=== PATIENT | female | born 1950 | race Hispanic/Latino ===

== ENCOUNTER 2016-04-06 05:43 | Inpatient (IN) | payer MEDICARE, OTHER ==
[2016-04-01 11:36] LABS: Bilirubin,Urine NEG (Negative); Blood,Urine NEG (Negative); Ketones,Urine TR mg/dL (Negative); Leukocyte Esterase,Urine NEG (Negative); Nitrite,Urine NEG (Negative); Protein,Urine <15 mg/dL mg/dL (Negative); Urobilinogen,Urine < 2.0 mg/dL (<2.0)
[2016-04-01 11:46] LABS: Basophils % (Auto) 0.7 % (0.0-1.8); Eosinophils % (Auto) 1.5 % (0.0-4.3); Hematocrit 43.6 % (30.3-42.9); Hemoglobin 14.5 gm/dl (10.1-14.3); Mean Corpuscular HGB Conc 33 % (30-34); Mean Corpuscular Hemoglobin 28 pg (28-32); Mean Corpuscular Volume 85 fl (79-97); Platelet Count 238 K/mm3 (140-440); Red Blood Count 5.12 M/mm3 (3.65-5.03); Red Cell Distribution Width 14.6 % (13.2-15.2); White Blood Count 10.9 K/mm3 (4.5-11.0)
[2016-04-01 11:56] LABS: Alanine Aminotransferase 21 units/L (7-56); Albumin 4.1 g/dL (3.9-5); Albumin/Globulin Ratio 1.2 %; Alkaline Phosphatase 90 units/L (35-129); BUN/Creatinine Ratio 25.71; Bilirubin,Total 0.4 mg/dL (0.1-1.2); Blood Urea Nitrogen 18 mg/dL (7-17); Calcium 9.4 mg/dL (8.4-10.2); Carbon Dioxide 24 mmol/L (22-30); Chloride 95.1 mmol/L (98-107); Glucose 193 mg/dL (65-100); Potassium 4.4 mmol/L (3.6-5.0); Sodium 135 mmol/L (137-145); Total Protein 7.5 g/dL (6.3-8.2)
[2016-04-01 11:57] LABS: Anion Gap 20 mmol/L
[2016-04-01 12:47] LABS: Cholesterol 179 mg/dL (50-199); HDL Cholesterol 50 mg/dL (40-59); LDL Cholesterol,Direct 98 mg/dL (50-130); Triglycerides 159 mg/dL (2-149)
--- NOTE | 2016-04-01 15:27 | Anesthesia Consultation ---
Anesthesia Consult and Med Hx - Airway Anesthetic Teeth Evaluation: Good, Caps (#8) ROM Head & Neck: Adequate Mental/Hyoid Distance: Adequate Mallampati Class: Class III Intubation Access Assessment: Possibly Difficult - Pulmonary Exam CTA: Yes - Cardiac Exam Cardiac Exam: RRR (Hx Afib) - Pre-Operative Health Status ASA Pre-Surgery Classification: ASA3 Proposed Anesthetic Plan: General (no previous anesthesia problems) - Pulmonary Hx Smoking: Yes (CIGARETTES 1 1/2 PPD X 33 YRS, QUIT IN 2002) Hx Respiratory Symptoms: (recent bronchitis - 2 more doses of medicine, anesthesiologist informed) Hx Sleep Apnea: Yes (uses CPAP) - Cardiovascular System Hx Hypertension: Yes (FOR 15 YRS) Hx Coronary Artery Disease: Yes (s/p CABG - clearance on chart) Hx Cardia Arrhythmia: Yes (Afib) - Central Nervous System Hx Seizures: Yes ( A CHILD, UNKNOWN ETIOLOGY) Hx Psychiatric Problems: Yes (depression) - Gastrointestinal Hx Gastroesophageal Reflux Disease: Yes - Endocrine Hx Non-Insulin Dependent Diabetes: Yes - Other Systems Hx Cancer: No Hx Obesity: Yes (Morbid obesity)
--- NOTE | 2016-04-01 15:35 | Anesthesia Consultation ---
Anesthesia Consult and Med Hx Date of service: 04/01/16 - Airway Anesthetic Teeth Evaluation: Good, Caps (38) ROM Head & Neck: Adequate Mental/Hyoid Distance: Adequate Mallampati Class: Class III Intubation Access Assessment: Possibly Difficult - Pulmonary Exam CTA: Yes - Cardiac Exam Cardiac Exam: RRR - Pre-Operative Health Status ASA Pre-Surgery Classification: ASA3 Proposed Anesthetic Plan: General (No previous anesthesia problems) - Pulmonary Hx Smoking: Yes (CIGARETTES 1 1/2 PPD X 33 YRS, QUIT IN 2002) Hx Sleep Apnea: Yes - Cardiovascular System Hx Hypertension: Yes (FOR 15 YRS) Hx Coronary Artery Disease: Yes - Central Nervous System Hx Seizures: Yes ( A CHILD, UNKNOWN ETIOLOGY) - Other Systems Hx Cancer: No
[~2016-04-06 05:43] MED LIST: MARCAINE-EPI 0.5%-1:200,000 INFILTRATI ONE; NACL 0.9% 1000 ML 1,000 ML IV SCH; NACL 0.9% IR ONE; VERSED IV NR; XYLOCAINE 1% 20 mL INFILTRATI ONE
[2016-04-06] MEDS ORDERED: XYLOCAINE MPF 2% ONE (06:27)
[2016-04-06] MEDS ORDERED: ROBINUL ONE (06:28)
[2016-04-06] MEDS ORDERED: DECADRON ONE (06:28)
[2016-04-06] MEDS ORDERED: ZEMURON IV ONE ×2 (06:28→10:47)
[2016-04-06] MEDS ORDERED: ZOFRAN ONE (06:28)
[2016-04-06] MEDS ORDERED: NACL P/F VIAL (10 ML) 10 ML ONE (06:28)
[2016-04-06] MEDS ORDERED: BLOXIVERZ ONE (06:28)
[2016-04-06] MEDS ORDERED: DIPRIVAN 10 MG/ML IV ONE (06:29)
[2016-04-06] MEDS ORDERED: DILAUDID ONE (06:29)
[2016-04-06] MEDS ORDERED: ePHEDrine SULFATE ONE (06:30)
[2016-04-06] MEDS ORDERED: NACL BACTERIOSTATIC INFILTRATI ONE (06:32)
--- NOTE | 2016-04-06 06:40 | Anesthesia Day of Surgery ---
Anesthesia Day of Surgery - Day of Surgery Patient Examined: Yes Patient H&P Reviewed: Yes Patient is NPO: Yes Beta Blockers: Yes Cardiac Clearance: Yes
[2016-04-06] MEDS ORDERED: PEPCID IV NR (07:00)
[2016-04-06] MEDS ORDERED: ZOFRAN IV PRN ×2 (07:22→07:39)
[2016-04-06] MEDS ORDERED: LEVAQUIN 500MG/100ML 100 ML IV ONE ×2 (07:39)
[2016-04-06] MEDS ORDERED: QUELICIN ONE (07:54)
[2016-04-06] MEDS ORDERED: NEO SYNEPHRINE/NS Syringe(OR USE) IV ONE (07:54)
[2016-04-06] MEDS ORDERED: LOVENOX SUB-Q NR ×2 (08:00)
[2016-04-06] MEDS ORDERED: LEVAQUIN 500MG/100ML 100 ML IV NR (08:00)
[2016-04-06] MEDS ORDERED: LACTATED RINGERS 1,000 ML IV SCH (08:00)
[2016-04-06] MEDS ORDERED: FLAGYL 500 MG/100 ML 100 ML IV NR ×2 (08:00)
[2016-04-06] MEDS ORDERED: TRANSDERM-SCOP TD NR (08:00)
[2016-04-06] MEDS ORDERED: WATER FOR IRRIG STERILE IR ONE (08:05)
[2016-04-06] MEDS ORDERED: NACL 0.9% 1000 ML 1,000 ML ONE (09:27)
[2016-04-06] MEDS ORDERED: LOVENOX SUB-Q SCH (10:00)
--- NOTE | 2016-04-06 10:56 | Admit Criteria Form ---
Admission Criteria Documentation: AMBULATORY SURGERY EXCEPTION CRITERIA Ambulatory Surgery Exception Criteria ( Place 'X' for any and all applicable criteria): Surgery or procedure performed on ambulatory basis may require inpatient stay for[A] ANY ONE of the following(1)(2)(3)(4)(5)(6)(7)(8)(9): [X] I. A preoperative situation, condition, or finding that warrants inpatient stay as indicated by ANY ONE of the following: [] a) Inpatient care needed because of severity of a disease or condition rather than the surgery (eg, severe cardiac or respiratory disease, severe infection) (15) (16 ) (17) (18) [] b) Emergent procedure (eg, angioplasty for acute ischemia)(19) [] c) Complex surgical approach or situation as indicated by ANY ONE of the following(3): [] i) Open approach needed instead of usual endoscopic, transcatheter, or other less invasive procedure [] ii) Difficult approach because of previous operation [] iii) Airway monitoring required after open neck procedures(20)(21) [] iv) Large mass requiring unusually extensive dissection [] v) Additional complicating feature requiring inpatient care (eg, drain management)(22(23): [X] d) Major surgery in a pt with high anesthetic risk as indicated by ANY ONE of the following (2)(3)(5)(7)(8): [X] i) ASA risk class III or higher (severe systemic disease impairing function) [D] [] ii) Advanced age (eg, older than 85 years)(14)(24) [] iii) Symptomatic heart failure(25) [] iv) Symptomatic asthma or COPD(8)(21) [] v) Morbid obesity with hemodynamic or respiratory problems(20)( 21)(26)(27) [X] vi) Obstructive sleep apnea(20)(21) [] vii) Former premature infants who are younger than 60 weeks [] viii) High risk for severe postoperative abnormalities (eg, severe postoperative hypocalcemia after parathyroidectomy for severe hyperparathyroidism)(27)( 28) [] ix) Unstable angina(25) [] e) Drug-related risk requiring inpatient stay as indicated by ANY ONE of the following(5)(10)(14)(32)(33) [] i) Procedure requires discontinuing drugs or other therapy (eg , antiarrhythmic medication, antiseizure medication), which necessitates inpatient observation or treatment.(18)(31) [] ii) Major surgery and high risk drug use as indicated by ANY ONE of the following: [] 1) Active abuse of cocaine or similar drug [] 2) Monoamine oxidase inhibitor use [] 3) Other drug identified as posing risk [] f) Inadequate outpatient care situation as indicated by ANY ONE of the following(5)(10)(14)(32)(33) [] i) Patient lives remote from medical facility and procedure has urgent complication potential, and temporary nearby residence cannot be arranged [] ii) Patient will have postprocedure incapacitation and inadequate assistance at home, or alternative level of care cannot be arranged. [] iii) Patient will have long general anesthesia or procedure side effect resolution time, and competent person to stay with patient on first postoperative night at home or alternative level of care cannot be arranged. []iv) Other inadequate outpatient situation that cannot be handled by other means [] II. A perioperative event, condition, or finding that warrants inpatient stay as indicated by ANY ONE of the following (1)(2)(3): [] a) Inadequate physiologic recovery: cardiovascular, respiratory, or hemodynamic status not normal or near preoperative baseline(18) [] b) Hemodynamic instability [] c) Patient not alert with near normal or baseline mental status [] d) Temperature not normal or as expected and not appropriate for outpatient treatment of condition [] e) Ambulatory or appropriate activity level status not yet achieved post procedure [E](34)(35)(36) [] f) Operative site not appropriate (eg, unexpected or excessive drainage or bleeding) [] g) Postoperative effects not resolved or adequately managed (eg, significant pain or vomiting not appropriate for outpatient or next level of care)(10)(12) [] h) Complicating features requiring inpatient care as indicated by ANY ONE of the following(37): [] i) Severe complications of procedure (eg, bowel injury, airway compromise, vascular injury,severe hemorrhage) [] ii) Extensive (eg, dissection far beyond usual scope of procedure ) or prolonged (eg, 120 minutes beyond usual) surgery needed requiring inpatient postoperative care [] iii) Conversion to an open or complex procedure that requires inpatient care (eg, open vs laparoscopic cholecystectomy, abdominal vs vaginal hysterectomy)(38) [] iv) Comorbid condition or test result identified during or post procedure that requires inpatient care (7) [] v) Malignant hyperthermia(30) [] vi) Other complicating feature requiring inpatient care(22)(23) Inpatient stay may be needed until ALL of the following are present (1)(2)(3)(4) (5)(6)(10)(14)(33)(40): []a) Physiologic recovery: cardiovascular, respiratory, and hemodynamic status normal or near preoperative baseline []b) Hemodynamic stability []c) Patient alert, with near normal or baseline mental status []d) Temperature appropriate: patient afebrile or temperature appropriate for outpt treatment of condition []e) Activity level appropriate: ambulatory or appropriate activity level post procedure []f) Operative site appropriate as indicated by ALL of the following: []i) Site dry or with expected drainage []ii) Any blood noted is as expected for procedure. []g) Postoperative effects resolved or managed as indicated by ALL of the following: []i) Pain management appropriate for outpatient (or next level of) care(10) []ii) Minimal nausea and vomiting: if present, successfully treated with oral medication(12) []iii) Headache, dizziness, or drowsiness (if present) are mild. []h) Voiding status acceptable as indicated by ANY ONE of the following: []i) Voiding spontaneously []ii) No voiding but instructions given for follow-up in 6 to 8 hours []iii) Urinary catheter in place, and instructions given for follow-up []i) Complicating features requiring inpatient care manageable at a lower level of care(37) []j) Comorbid conditions manageable at a lower level of care(37) The original [facility] content created by [employer] has been revised. The portions of the content which have been revised are identified through the use of italic text or in bold, and [facility] has neither reviewed nor approved the modified material. All other unmodified content is copyright [facility]. Please see references footnoted in the original [facility] edition 2016 Admission Criteria Met: Yes
[2016-04-06] MEDS ORDERED: NACL 0.9% IR ONE (10:57)
[2016-04-06] MEDS ORDERED: XYLOCAINE 1% 20 mL INFILTRATI ONE (11:00)
[2016-04-06] MEDS ORDERED: MARCAINE-EPI 0.5%-1:200,000 INFILTRATI ONE (11:00)
--- NOTE | 2016-04-06 11:39 | Post Anesthesia Evaluation ---
- Post Anesthesia Evaluation Patient Participated: Yes Airway Patent: Yes Stable Respiratory Function: Yes Nausea/Vomiting: No Temp > 96.8F: Yes Pain Manageable: Yes Adequeate Hydration: Yes Anesthesia Complications: No Block Receding Appropriately: Not Applicable Patient on Ventilator: No
[2016-04-06] MEDS: DILAUDID IV PRN ×4 (11:53→22:57)
[2016-04-06] MEDS: TORADOL IV SCH ×3 (14:30→23:00)
[2016-04-06] MEDS: FLAGYL 500 MG/100 ML 100 ML IV SCH (16:00)
[2016-04-06 17:10] LABS: BUN/Creatinine Ratio 22.22; Blood Urea Nitrogen 20 mg/dL (7-17); Calcium 8.6 mg/dL (8.4-10.2); Carbon Dioxide 16 mmol/L (22-30); Chloride 100.8 mmol/L (98-107); Glucose 252 mg/dL (65-100); Potassium 4.8 mmol/L (3.6-5.0); Sodium 138 mmol/L (137-145)
[2016-04-06 17:22] LABS: Hematocrit 41.7 % (30.3-42.9); Hemoglobin 13.4 gm/dl (10.1-14.3); Mean Corpuscular HGB Conc 32 % (30-34); Mean Corpuscular Hemoglobin 28 pg (28-32); Mean Corpuscular Volume 87 fl (79-97); Platelet Count 259 K/mm3 (140-440); Red Blood Count 4.79 M/mm3 (3.65-5.03); Red Cell Distribution Width 15.1 % (13.2-15.2); White Blood Count 17.5 K/mm3 (4.5-11.0)
[2016-04-06 17:28] LABS: Anion Gap 26 mmol/L
[2016-04-06 18:26] LABS: Basophils % (Manual) 0 % (0.0-1.8); Blastocytes % (Manual) 0 %; Eosinophils % (Manual) 0 % (0.0-4.3)
[2016-04-06 18:28] LABS: Anisocytosis 1+; Diff Status Complete; Large Platelets 1+; Ovalocytes Rare; Platelet Estimate Consistent w Auto
[2016-04-07] MEDS: TORADOL IV SCH ×2 (02:23→09:05)
[2016-04-07 05:49] LABS: Magnesium 2.2 mg/dL (1.7-2.3); Phosphorous 5.3 mg/dL (2.5-4.5)
[2016-04-07] MEDS ORDERED: D50W (25GM) IV PRN (07:43)
[2016-04-07] MEDS: FLAGYL 500 MG/100 ML 100 ML IV SCH ×2 (09:04)
[2016-04-07] MEDS: DILAUDID IV PRN (09:06)
[2016-04-07 09:23] LABS: Basophils % (Auto) 0.1 % (0.0-1.8); Hematocrit 36.7 % (30.3-42.9); Hemoglobin 11.8 gm/dl (10.1-14.3); Mean Corpuscular HGB Conc 32 % (30-34); Mean Corpuscular Hemoglobin 28 pg (28-32); Mean Corpuscular Volume 86 fl (79-97); Platelet Count 254 K/mm3 (140-440); Red Blood Count 4.26 M/mm3 (3.65-5.03); Red Cell Distribution Width 15.1 % (13.2-15.2); White Blood Count 17.1 K/mm3 (4.5-11.0)
[2016-04-07 09:43] LABS: Albumin 3.7 g/dL (3.9-5); Albumin/Globulin Ratio 1.2 %; BUN/Creatinine Ratio 23.63; Bilirubin,Total 0.3 mg/dL (0.1-1.2); Calcium 8.7 mg/dL (8.4-10.2); Chloride 101.4 mmol/L (98-107); Potassium 4.8 mmol/L (3.6-5.0); Total Protein 6.8 g/dL (6.3-8.2)
[2016-04-07] MEDS ORDERED: LOVENOX SUB-Q SCH (10:00)
[2016-04-07 12:49] VITALS: BP 143/64
--- NOTE | 2016-04-07 12:49 | Discharge Summary ---
Providers - Providers Date of Admission: 04/06/16 05:43 Date of discharge: 04/07/16 Attending physician: JOSE PUGH Primary care physician: ETHEL NUNEZ MD Hospitalization Condition: Good Procedures: Lap Gastric Sleeve Disposition: DISCHARGED TO HOME OR SELFCARE - Discharge Diagnoses (1) Morbid (severe) obesity due to excess calories Status: Chronic Core Measure Documentation - Palliative Care Palliative Care/ Comfort Measures: Not Applicable - Core Measures Any of the following diagnoses?: none Exam - Constitutional Vitals: Temp Pulse Resp BP Pulse Ox 98.1 F 88 16 145/70 97 04/07/16 07:39 04/07/16 07:39 04/07/16 10:43 04/07/16 07:39 04/07/16 09:29 General appearance: Present: no acute distress - EENT Eyes: Present: PERRL, EOM intact ENT: hearing intact, clear oral mucosa, dentition normal - Neck Neck: Present: supple, normal ROM - Respiratory Respiratory: bilateral: CTA - Cardiovascular Rhythm: regular - Extremities Extremities: no ischemia, No edema Peripheral Pulses: within normal limits - Abdominal General gastrointestinal: Present: soft, non-tender, normal bowel sounds Female genitourinary: Present: normal - Rectal Rectal Exam: deferred - Integumentary Integumentary: Present: clear, warm, dry - Musculoskeletal Musculoskeletal: strength equal bilaterally - Psychiatric Psychiatric: appropriate mood/affect Plan Activity: no restrictions Diet: other (bariatric) Wound: keep clean and dry Follow up with: PRIMARY MD MAYRA [Primary Care Provider] - 7 Days JOSE PUGH MD [Staff Physician] - 7 Days
[2016-04-09] MEDS ORDERED: TRANSDERM-SCOP TD SCH (08:00)
== END 2016-04-07 14:10 | disposition home or self-care (01) | DRG 327 ==
LOC: 3A 05:43 → 2B-SURG 12:15
PROVIDERS: ADMIT Specialist; ATTEND Specialist
PROC: 0DP64CZ Removal of Extraluminal Device from Stomach, Percutaneous Endoscopic Approach (ICD-10-PCS; principal; 2016-04-06)
PROC: 0DB64Z3 Excision of Stomach, Percutaneous Endoscopic Approach, Vertical (ICD-10-PCS; principal; 2016-04-06)
DX: K21.9 Gastro-esophageal reflux disease without esophagitis (principal); Z68.41 Body mass index [BMI] 40.0-44.9, adult; E66.01 Morbid (severe) obesity due to excess calories; E11.9 Type 2 diabetes mellitus without complications; F32.9 Major depressive disorder, single episode, unspecified; I48.91 Unspecified atrial fibrillation; I25.10 Atherosclerotic heart disease of native coronary artery without angina pectoris; I10 Essential (primary) hypertension; G47.30 Sleep apnea, unspecified; Z88.0 Allergy status to penicillin; Z88.5 Allergy status to narcotic agent; Z87.891 Personal history of nicotine dependence; Z95.1 Presence of aortocoronary bypass graft
CPT/HCPCS: 36415; 80048; 80053; 80061; 81001; 82962; 83036; 83735; 84100; 85007; 85025; 88307; 94760; C9250; J0330; J1100; J1170; J1650; J1885; J1956; J2250; J2370; J2405; J2704; J2710; J7030; J7120